=== PATIENT | female | born 1995 | race African-American/Black ===

== ENCOUNTER 2020-03-21 11:19 | Emergency (ER) | payer MEDICAID ==
[~2020-03-21] VITALS: Ht 165.1 cm; Wt 71.8 kg
[2020-03-21 11:27] VITALS: TEMP 98.8
[2020-03-21 11:48] LABS: COLLECTION METHOD CLEAN CATCH
[2020-03-21 12:14] LABS: MUCOUS Present /lpf; PH 5 (5-8); SQUAMOUS EPITHELIAL 0-2 /hpf; URINE APPEARANCE Hazy; URINE BACTERIA None Seen /hpf; URINE BILIRUBIN Negative (NEGATIVE); URINE BLOOD Negative (NEGATIVE); URINE COLOR Yellow; URINE GLUCOSE Negative (NEGATIVE); URINE KETONE Negative (NEGATIVE); URINE LEUKOCYTE ESTERASE 2+ (NEGATIVE); URINE NITRATE Negative (NEGATIVE); URINE PROTEIN(semi-quant) 1+ (NEGATIVE); URINE UROBILINOGEN >=4.0 mg/dL (NEGATIVE)
[2020-03-21 12:40] LABS: BASO % 0.1 % (0.0-2.0); EOS % 0.1 % (0-4.0); GRAN # 10.1 (1.4-6.5); GRAN % 85.3 % (42.2-75.2); HEMATOCRIT 37.1 % (37.0-47.0); HEMOGLOBIN 12.3 g/dl (12.5-16.0); LYMPH # 1.1 (1.2-3.4); MEAN CELL VOLUME 87 fl (80.0-100.0); MEAN CORPUSCULAR HEMOGLOBIN 29 pg (27.0-31.0); MEAN CORPUSCULAR HGB CONC 33 g/dl (33.0-37.0); MEAN PLATELET VOLUME 10.2 fl (7.4-10.4); MONO # 0.6 (0.1-0.6); PLATELET COUNT 263 K/mm3 (130-400); RED BLOOD COUNT 4.25 M/mm3 (4.10-5.30); REDCELL DISTRIBUTION WIDTH-CV 13.3 % (11.5-14.5)
[2020-03-21 12:54] LABS: ALBUMIN 3.6 gm/dL (3.5-5.0); CALCIUM 9.5 mg/dL (8.4-10.2); CREATININE, serum 0.8 (0.52-1.25); POTASSIUM 3.6 mmol/L (3.4-5.0); TOTAL PROTEIN 6.9 gm/dL (6.4-8.2)
[2020-03-21] MEDS ORDERED: OMNICEF 300MG300 MG PO (13:48)
[2020-03-21 13:55] VITALS: BP 112/71; PULSE 94
== END 2020-03-21 13:55 | disposition home or self-care (01) ==
LOC: COL.ER 11:19
PROVIDERS: Emergency Medicine
DX: N39.0 Urinary tract infection, site not specified (principal); Z32.02 Encounter for pregnancy test, result negative
CPT/HCPCS: J1885; J2405; J7030